=== PATIENT | male | born 1955 | race Caucasian/White ===

== ENCOUNTER 2019-04-11 07:00 | Emergency (ER) | payer OTHER ==
[2019-04-11 07:36] VITALS: TEMP 98.4; BMI 27.0
[2019-04-11] MEDS ORDERED: METOPROLOL TARTRATE 50 MG TABLET (FP) PO ONE (08:20)
--- NOTE | 2019-04-11 08:23 | PDOC ---
History of Present Illness - General Chief Complaint: Nasal Bleeding Stated Complaint: EPISTAXIS Time Seen by Provider: 04/11/19 07:44 History Source: Patient Exam Limitations: No Limitations - History of Present Illness Initial Comments: 04/11/19 08:02 64-year-old male presents to ED with complaints of spontaneous epistaxis via left nare at around 530 this morning. Patient states was picking at area trying to clean it when he noted bright red blood. Patient states tried putting a tissue in his nose and then noted clots of blood following it the bleeding continued for approximately 10 minutes but then resolved. Patient states had no difficulty breathing difficulty swallowing, and was able to spit out the blood. Patient does have history of COPD utilizing the and nebulizers and inhalers but denies any difficulty breathing presently. Patient also with history of hypertension and states did not take his blood pressure medication this morning. Patient denies headache presently dizziness, or chest pain 04/11/19 08:23 Is this a multiple visit Asthma Patient?: No Timing/Duration: other Severity: mild Associated Symptoms: reports: other Past History - Travel Traveled outside of the country in the last 30 days: No Close contact w/someone who was outside of country & ill: No - Past Medical History Allergies/Adverse Reactions: Allergies Allergy/AdvReac Type Severity Reaction Status Date / Time No Known Allergies Allergy Verified 04/11/19 07:33 Asthma: Yes COPD: Yes HTN: Yes - Immunization History Immunization Up to Date: No - Psycho Social/Smoking Cessation Hx Smoking History: Never smoked Have you smoked in the past 12 months: No Information on smoking cessation initiated: No Hx Alcohol Use: No Drug/Substance Use Hx: No Review of Systems - Review of Systems Able to Perform ROS?: Yes Constitutional: No: Symptoms Reported HEENTM: Yes: Nose Bleeding Respiratory: No: Symptoms reported Cardiac (ROS): No: Symptoms Reported ABD/GI: No: Symptoms Reported : No: Symptoms Reported Musculoskeletal: No: Symptoms Reported Integumentary: No: Symptoms Reported Neurological: No: Symptoms reported Endocrine: No: Symptoms Reported Hematologic/Lymphatic: No: Symptoms Reported *Physical Exam - Vital Signs Last Vital Signs Temp Pulse Resp BP Pulse Ox 98.4 F 63 16 180/93 H 90 L 04/11/19 07:27 04/11/19 07:27 04/11/19 07:27 04/11/19 07:27 04/11/19 07:27 - Physical Exam General Appearance: Yes: Nourished, Appropriately Dressed. No: Apparent Distress HEENT: positive: EOMI, HARSHIL, TMs Normal, Pharynx Normal, Other ( Noted excoriated area to the anterior base of left nare with scab to area surrounding skin intact no active bleeding ). negative: Nasal Congestion, Rhinorrhea, Sinus Tenderness Neck: positive: Supple Respiratory/Chest: positive: Wheezing (Mild expiratory wheeze to left lobe). negative: Respiratory Distress, Accessory Muscle Use Cardiovascular: positive: Regular Rhythm, Regular Rate. negative: Murmur Gastrointestinal/Abdominal: negative: Distended Integumentary: positive: Normal Color, Warm, Moist Neurologic: positive: Motor Strength 5/5 (Ambulatory with cane) Medical Decision Making - Medical Decision Making 04/11/19 08:11 Chief complaint: Left nasal bleeding while trying to clean it out this morning with a tissue which lasted for approximately 10 minutes patient has no other complaints. And is asymptomatic presently Exam: Patient with visualized excoriation/scab to the left nare floor mild expiratory wheeze to left base. Blood pressure slightly elevated. Plan: Patient states did not take his blood pressure medication today which is Lopressor and amlodipine. Patient will be given his 100 mg of Lopressor here in the ER O2 sat retaken and was at 92% on room air patient states is normally low and has no complaints of difficulty breathing Discharge - Discharge Information Problems reviewed: Yes Clinical Impression/Diagnosis: Epistaxis Condition: Improved Disposition: HOME - Follow up/Referral Referrals: Virgilio Childress MD [Primary Care Provider] - - Patient Discharge Instructions Patient Printed Discharge Instructions: DI for Nosebleed Additional Instructions: . . Avoid nose blowing and manipulation for the next 48 hours to avoid recurrent nasal bleeding do not take your Lopressor this morning as you are given the dose here in the ER. Otherwise take your other medications including your COPD medications/nebulizer inhaler. Return to ED if symptoms recur otherwise follow-up with your PMD - Post Discharge Activity
[2019-04-11] MEDS ORDERED: METOPROLOL TARTRATE 50 MG TABLET (FP) ONE (08:25)
[2019-04-11 09:17] VITALS: BP 175/87; PULSE 60
--- NOTE | 2019-04-11 10:12 | PDOC ---
*Physical Exam - Vital Signs Last Vital Signs Temp Pulse Resp BP Pulse Ox 98.4 F 60 17 175/87 H 90 L 04/11/19 07:27 04/11/19 09:16 04/11/19 09:16 04/11/19 09:16 04/11/19 07:27 ED Treatment Course - Medications Given in the ED: ED Medications Discontinued Medications Generic Name Dose Route Start Last Admin Trade Name Freq PRN Reason Stop Dose Admin Metoprolol Tartrate 100 mg 04/11/19 08:20 04/11/19 08:25 Lopressor - PO 04/11/19 08:21 100 mg ONCE ONE Administration Medical Decision Making - Medical Decision Making 04/11/19 10:11 Patient seen and evaluated with the nurse practitioner. I agree with the overall evaluation, assessment, and management with the following summary of visit: 64-year-old male with history of hypertension presents with epistaxis, resolved. Vitals as noted No active bleeding, nasal exam as noted Counseled on blood pressure control, hemostatic procedures, and return criteria. Discharge - Discharge Information Problems reviewed: Yes Clinical Impression/Diagnosis: Epistaxis Condition: Improved Disposition: HOME - Follow up/Referral Referrals: Virgilio Childress MD [Primary Care Provider] - - Patient Discharge Instructions Patient Printed Discharge Instructions: DI for Nosebleed Additional Instructions: . . Avoid nose blowing and manipulation for the next 48 hours to avoid recurrent nasal bleeding do not take your Lopressor this morning as you are given the dose here in the ER. Otherwise take your other medications including your COPD medications/nebulizer inhaler. Return to ED if symptoms recur otherwise follow-up with your PMD - Post Discharge Activity
== END 2019-04-11 09:27 | disposition home or self-care (01) ==
LOC: JER 07:00
DX: R04.0 Epistaxis (principal); I10 Essential (primary) hypertension; J44.9 Chronic obstructive pulmonary disease, unspecified; J45.998 Other asthma
CPT/HCPCS: 99282-25

== ENCOUNTER 2020-09-24 14:46 | Inpatient (IN) | payer OTHER ==
[2020-09-24 15:26] VITALS: BMI 25.9
[2020-09-24] MEDS ORDERED: DEXTROSE 50%-WATER - 25 GM/50 ML VIAL IVPUSH ONE ×4 (15:30→20:44)
[2020-09-24] MEDS ORDERED: SODIUM CHLORIDE 0.9% 500 ML INFUS.BAG IV ONE (15:31)
[2020-09-24] MEDS ORDERED: THIAMINE HCL 200 MG/2 ML VIAL IVPB ONE (15:33)
[2020-09-24] MEDS ORDERED: DEXTROSE 50%-WATER 25 GM/50 ML DISP.SYRIN ONE ×4 (15:38→21:01)
[2020-09-24] MEDS ORDERED: THIAMINE HCL 200 MG/2 ML VIAL ONE (15:38)
[2020-09-24 15:50] LABS: EPI CELLS 4 /uL (0-25.1); HYALINE CASTS 2 /uL (0-3.1); PH,URINE 5.5 (5.0-8.0); URINE APPEARANCE CLEAR; URINE BACTERIA >9,000 /uL (0-1359); URINE BILIRUBIN 1+ (NEGATIVE); URINE COLOR DK YELLOW; URINE GLUCOSE (UA) NEGATIVE (NEGATIVE); URINE KETONE NEGATIVE (NEGATIVE); URINE LEUK ESTERASE 2+ (NEGATIVE); URINE NITRITE NEGATIVE (NEGATIVE); URINE PROTEIN TRACE (NEGATIVE); URINE RBC 9 /uL (0-23.9); URINE WBC 266 /uL (0-25.8)
[2020-09-24 15:54] LABS: BASO % 0.9 % (0-2.0); EOS % 0.2 % (0-4.5); HEMATOCRIT 17.1 % (35.4-49); MCH 21.6 pg (25.7-33.7); MCHC 29.5 g/dl (32.0-35.9); MEAN CELL VOLUME 73.5 fl (80-96); MEAN PLT VOLUME 7.4 fl (7.5-11.1); MONO % 1.3 % (3.8-10.2); NEUT % 96.6 % (42.8-82.8); PLATELET COUNT 342 10^3/uL (134-434); RBC 2.33 M/mm3 (4.00-5.60); RDW 24.8 % (11.9-15.9)
[2020-09-24 15:57] LABS: VENOUS BASE EXCESS -0.5 mmol/L (-2-2); VENOUS O2 SATURATION 67.6 % (70-80); VENOUS PCO2 48.6 mmHg (38-52); VENOUS PH 7.333 (7.310-7.410)
[2020-09-24] MEDS ORDERED: ACETAMINOPHEN 1000 MG/100 ML VIAL (NON FORMULARY) IVPB ONE (15:57)
[2020-09-24 16:02] LABS: INR 1.84 (0.83-1.09); PROTHROMBIN TIME (PATIENT) 21.9 SEC (9.7-13.0)
[2020-09-24 16:04] LABS: ACTIVATED PTT 25.8 SECONDS (25.2-36.5)
[2020-09-24 16:18] LABS: CHLORIDE 98 mmol/L (98-107); SODIUM 132 mmol/L (136-145)
[2020-09-24 16:20] LABS: CALCIUM 8.2 mg/dL (8.5-10.1)
[2020-09-24 16:21] LABS: ALBUMIN 2.8 g/dl (3.4-5.0); ANION GAP 9 MMOL/L (8-16); BLOOD UREA NITROGEN 26.7 mg/dL (7-18); CO2 25 mmol/L (21-32)
[2020-09-24 16:24] LABS: CREATININE 1.3 mg/dL (0.55-1.3); SGOT/AST 426 U/L (15-37); SGPT/ALT 122 U/L (13-61)
[2020-09-24 16:26] LABS: TOT PROT 7.5 g/dl (6.4-8.2)
[2020-09-24] MEDS ORDERED: LACTATED RINGERS SOLUTION 1000 ML INFUS.BAG IV ONE (16:26)
[2020-09-24 16:27] LABS: ALK PHOS 803 U/L (45-117)
[2020-09-24] MEDS ORDERED: PANTOPRAZOLE SODIUM 40 MG VIAL IVPUSH ONE (16:29)
[2020-09-24] MEDS ORDERED: CEFTRIAXONE 1,000 MG in DEXTROSE 5%-WATER - 50 ML IVPB ONE (16:31)
[2020-09-24] MEDS ORDERED: VANCOMYCIN/WATER BAGS 1,250 MG/250 ML BAG IVPB ONE ×2 (16:35→17:02)
[2020-09-24] MEDS ORDERED: PIPERACILLIN/TAZOB 4.5 GM 4.5 GM in DEXTROSE 5%-WATER 100 ML IVPB ONE (16:36)
[2020-09-24] MEDS ORDERED: ACETAMINOPHEN INJECTION 100 ML IVPB ONE (16:40)
[2020-09-24] MEDS ORDERED: PANTOPRAZOLE SODIUM 40 MG VIAL ONE ×2 (16:41→22:21)
[2020-09-24] MEDS ORDERED: CEFTRIAXONE 1 GM/50 ML BAG ONE (16:41)
[2020-09-24 16:47] LABS: LACTIC ACID 3.2 mmol/L (0.4-2.0)
[2020-09-24 16:47] LABS: GLUCOSE,RANDOM 44 mg/dL (74-106)
[2020-09-24] MEDS ORDERED: PIPERACILLIN/TAZOB 4.5 GM 4.5 GM/100 ML BAG IVPB ONE (16:52)
[2020-09-24] MEDS ORDERED: VANCOMYCIN HCL 1,250 MG in DEXTROSE 5%-WATER - 1,250 MG/250 ML IVPB IVPB ONE (16:56)
[2020-09-24 17:28] LABS: ANISOCYTOSIS 3+; MACROCYTOSIS 1+
[2020-09-24] MEDS ORDERED: DEXTROSE 5%-WATER - 1,000 ML IV SCH (18:00)
[2020-09-24] MEDS ORDERED: MAGNESIUM SULFATE IN WATER 2 GM/50 ML IVPB IVPB ONE ×2 (18:35→19:54)
[2020-09-24] MEDS ORDERED: DEXTROSE 5%-NORMAL SALINE 1,000 ML IV SCH ×2 (18:45→20:09)
[2020-09-24 19:38] LABS: IRON SERUM 8 ug/dL (50-175)
[2020-09-24 19:39] LABS: TOTAL IRON BINDING CAPACITY 390 ug/dL (250-450)
[2020-09-24] MEDS: PANTOPRAZOLE SODIUM 40 MG VIAL IVPUSH SCH (22:11)
[2020-09-25] MEDS: PIPERACILLIN/TAZOB 3.375 GM 3.375 GM in DEXTROSE 5%-WATER - 50 ML IVPB SCH ×3 (03:00→19:23)
[2020-09-25 03:23] LABS: URINE AMPHETAMINES NEGATIVE (NEGATIVE)
[2020-09-25 03:24] LABS: COCAINE, UR NEGATIVE (NEGATIVE); OPIATES, URI NEGATIVE (NEGATIVE); PHENCYCLIDINE,URINE NEGATIVE (NEGATIVE); URINE BENZODIAZEPINES NEGATIVE (NEGATIVE)
[2020-09-25 03:25] LABS: METHADONE, UR POSITIVE (NEGATIVE); URINE BARBITURATES NEGATIVE (NEGATIVE)
[2020-09-25 04:25] LABS: HEMATOCRIT 23.4 % (35.4-49); MCH 23.1 pg (25.7-33.7); MCHC 29.7 g/dl (32.0-35.9); MEAN CELL VOLUME 77.7 fl (80-96); MEAN PLT VOLUME 7.7 fl (7.5-11.1); PLATELET COUNT 269 10^3/uL (134-434); RBC 3.02 M/mm3 (4.00-5.60); RDW 22.8 % (11.9-15.9)
[2020-09-25 04:31] LABS: WHITE BLOOD COUNT 31.7 K/mm3 (4.0-10.0)
[2020-09-25] MEDS ORDERED: PIPERACILLIN/TAZOB 3.375 GM 3.375 GM/50 ML BAG IVPB ONE ×2 (04:41→09:28)
[2020-09-25] MEDS ORDERED: DEXTROSE 5%-NORMAL SALINE 1,000 ML IV SCH ×3 (04:48→21:56)
[2020-09-25 05:13] LABS: LIPASE 66 U/L (73-393)
[2020-09-25 05:57] LABS: CHOLESTEROL 77 mg/dL (50-200)
[2020-09-25 05:58] LABS: TRIGLYCERIDES 29 mg/dL (0-150)
[2020-09-25 05:59] LABS: LDL CHOLESTEROL (ONLY SJRH) 38 mg/dL (5-100)
[2020-09-25 06:00] LABS: HDL CHOLESTEROL 41 mg/dL (40-60)
[2020-09-25] MEDS ORDERED: ALBUTEROL SO4 2.5/IPRATROPIUM 0.5 INH SOL 3 ML VIAL.NEB. NEB PRN (09:00)
[2020-09-25 09:12] LABS: ARTERIAL BLD GAS O2 SATURATION 87.5 mmHg (95-98); ARTERIAL BLOOD GAS PO2 61.8 mmHg (80-100); ARTERIAL BLOOD GAS pH 7.241 (7.350-7.450)
[2020-09-25 09:13] LABS: ALLENS TEST POSITIVE
[2020-09-25 09:15] LABS: LDH 384 U/L (87-246)
[2020-09-25] MEDS ORDERED: VANCOMYCIN 1 GRAM (PRE-DOCKED) 1,000 MG/250 ML BAG IVPB ONE (09:27)
[2020-09-25] MEDS ORDERED: PANTOPRAZOLE SODIUM 40 MG VIAL ONE (09:28)
[2020-09-25] MEDS: PANTOPRAZOLE SODIUM 40 MG VIAL IVPUSH SCH ×2 (09:35→21:03)
[2020-09-25] MEDS ORDERED: VANCOMYCIN 1 GM in D5W (PRE-DOCKED) 1,000 MG/250 ML IVPB SCH (10:00)
[2020-09-25] MEDS ORDERED: ACETAMINOPHEN 325 MG TABLET (FP) PO PRN (10:08)
[2020-09-25] MEDS: INSULIN SLIDING SCALE (NOVOLOG) 1 VIAL SQ SCH ×3 (11:00→21:16)
[2020-09-25 11:46] LABS: CHOLESTEROL < 50 mg/dL (50-200)
[2020-09-25 11:47] LABS: IRON SERUM 7 ug/dL (50-175); TOTAL IRON BINDING CAPACITY 348 ug/dL (250-450); TRIGLYCERIDES 31 mg/dL (0-150)
[2020-09-25 11:48] LABS: LDL CHOLESTEROL (ONLY SJRH) 14 mg/dL (5-100)
[2020-09-25 11:50] LABS: HDL CHOLESTEROL 34 mg/dL (40-60)
[2020-09-25] MEDS ORDERED: ACETAMINOPHEN 1000 MG/100 ML VIAL (NON FORMULARY) IVPB PRN (12:07)
[2020-09-25] MEDS ORDERED: PHYTONADIONE 10 MG/1 ML AMP IVPB ONE ×2 (12:13→16:45)
[2020-09-25] MEDS ORDERED: PNEUMOC 13-VAL CONJ-DIP CRM/PF 0.5 ML DISP.SYRIN IM ONE (12:18)
[2020-09-25] MEDS ORDERED: THIAMINE HCL 200 MG/2 ML VIAL IVPB SCH (12:30)
[2020-09-25] MEDS ORDERED: FOLIC ACID INJECTION - 1 MG, THIAMINE HCL 100 MG, MULTIVIT INJECTION ADULT 10 ML in SOD... IVPB ONE (13:00)
[2020-09-25] MEDS ORDERED: LORazepam 1 MG TABLET PO PRN (14:11)
[2020-09-25] MEDS ORDERED: ALBUTEROL SO4 0.083% IH SOL 2.5 MG/3 ML VIAL.NEB. NEB PRN (14:28)
[2020-09-25 14:31] LABS: INR 2.17 (0.83-1.09); PROTHROMBIN TIME (PATIENT) 26.1 SEC (9.7-13.0)
[2020-09-25 14:33] LABS: BASO % 1.5 % (0-2.0); EOS % 0.1 % (0-4.5); HEMATOCRIT 26.4 % (35.4-49); LYMPH % 1.1 % (8-40); MCH 24.1 pg (25.7-33.7); MCHC 30.5 g/dl (32.0-35.9); MEAN PLT VOLUME 7.8 fl (7.5-11.1); MONO % 0.7 % (3.8-10.2); NEUT % 96.6 % (42.8-82.8); PLATELET COUNT 238 10^3/uL (134-434); RBC 3.34 M/mm3 (4.00-5.60); RDW 21.5 % (11.9-15.9)
[2020-09-25] MEDS ORDERED: FUROSEMIDE 40 MG/4 ML INJECTABLE VIAL IVPUSH ONE (14:34)
[2020-09-25] MEDS ORDERED: METHADONE HCL 10 MG TABLET PO ONE (14:37)
[2020-09-25] MEDS ORDERED: PNEUMOCOCCAL 23 VACCINE 0.5 ML VIAL IM ONE (14:45)
[2020-09-25 15:04] LABS: CALCIUM 7.7 mg/dL (8.5-10.1)
[2020-09-25 15:05] LABS: ALBUMIN 2.4 g/dl (3.4-5.0); MAGNESIUM 1.9 mg/dL (1.8-2.4)
[2020-09-25 15:08] LABS: CREATININE 1.4 mg/dL (0.55-1.3)
[2020-09-25 15:09] LABS: PHOSPHOROUS 3.8 mg/dL (2.5-4.9)
[2020-09-25 15:13] LABS: ANISOCYTOSIS 2+; LACTIC ACID 3.6 mmol/L (0.4-2.0); MACROCYTOSIS 0; PLATELET ESTIMATE NORMAL
[2020-09-25 15:14] LABS: BILIRUBIN,TOTAL 6.5 mg/dL (0.2-1); CORRECTED WBC 8.29 K/mm3; WHITE BLOOD COUNT 9.2 K/mm3 (4.0-10.0)
[2020-09-25 15:54] LABS: HIV INTERPRETATION NEGATIVE (NEGATIVE)
[2020-09-25] MEDS ORDERED: PT OWN MED DRAWER 7, Y5N ONE (16:29)
[2020-09-25] MEDS ORDERED: LORazepam 1 MG TABLET PO SCH (17:00)
[2020-09-25] MEDS ORDERED: DEXTROSE 50%-WATER 25 GM/50 ML DISP.SYRIN ONE ×2 (17:26→21:13)
[2020-09-25] MEDS ORDERED: DEXTROSE 50%-WATER - 25 GM/50 ML VIAL IVPUSH ONE ×2 (17:28→21:26)
[2020-09-25] MEDS ORDERED: PIPERACILLIN/TAZOB 3.375 GM 3.375 GM in DEXTROSE 5%-WATER - 50 ML IVPB SCH (18:00)
[2020-09-25] MEDS ORDERED: DEXTROSE 5%-WATER - 50 ML IVPB ONE (18:13)
[2020-09-25] MEDS ORDERED: PIPERACILLIN/TAZOBACTAM 3.375 GM VIAL IVPB ONE (18:13)
[2020-09-25] MEDS: MUPIROCIN 2% TOPICAL OINTMENT FOR DECOLONIZATION NS SCH ×2 (19:26→21:15)
[2020-09-25 19:38] LABS: LACTIC ACID 2.2 mmol/L (0.4-2.0)
[2020-09-25 21:18] VITALS: BP 98/61; PULSE 93; TEMP 97.8
[2020-09-25] MEDS ORDERED: CHLORHEXIDINE GLUCONATE 4% CLEANSER FOR DECOLONIZATION TP SCH (22:00)
[2020-09-26] MEDS ORDERED: PATIENT'S OWN MEDICATION (NON-FORMULARY) (Losartan Potassium [Losartan Potassium] 100 MG T PO SCH (10:00)
[2020-09-26 13:07] LABS: CARCINOEMBRYONIC ANTIGEN 3.1 ng/mL (0.0-4.7)
[2020-09-27] MEDS ORDERED: LORazepam 1 MG TABLET PO SCH (05:00)
[2020-09-28] MEDS ORDERED: LORazepam 0.5 MG TABLET PO PRN
[2020-09-28] MEDS ORDERED: LORazepam 0.5 MG TABLET PO SCH (05:00)
[2020-09-29] MEDS ORDERED: LORazepam 0.5 MG TABLET PO ONE (05:00)
== END 2020-09-25 21:30 | disposition short-term general hospital (02) | DRG 720 ==
LOC: JER 14:46 → JERBED 17:44 → JICU 09-25 11:42
PROVIDERS: ATTEND Internal Medicine Pulmonary Disease
PROC: 30233N1 Transfusion of Nonautologous Red Blood Cells into Peripheral Vein, Percutaneous Approach (ICD-10-PCS; principal; 2020-09-24)
DX: A41.59 Other Gram-negative sepsis (principal); F11.20 Opioid dependence, uncomplicated; K72.90 Hepatic failure, unspecified without coma; K85.90 Acute pancreatitis without necrosis or infection, unspecified; I24.8 Other forms of acute ischemic heart disease; D68.9 Coagulation defect, unspecified; E87.2 Acidosis; K83.09 Other cholangitis; D64.9 Anemia, unspecified; N39.0 Urinary tract infection, site not specified; B96.1 Klebsiella pneumoniae [K. pneumoniae] as the cause of diseases classified elsewhere; K83.8 Other specified diseases of biliary tract; K74.60 Unspecified cirrhosis of liver; R18.8 Other ascites; I10 Essential (primary) hypertension; K92.2 Gastrointestinal hemorrhage, unspecified; E16.2 Hypoglycemia, unspecified; R50.9 Fever, unspecified; D72.829 Elevated white blood cell count, unspecified; I45.10 Unspecified right bundle-branch block; R64 Cachexia; Z68.25 Body mass index [BMI] 25.0-25.9, adult; J98.11 Atelectasis; R94.5 Abnormal results of liver function studies; I25.10 Atherosclerotic heart disease of native coronary artery without angina pectoris; F10.10 Alcohol abuse, uncomplicated; W18.39XA Other fall on same level, initial encounter; Z91.81 History of falling; Y92.098 Other place in other non-institutional residence as the place of occurrence of the external cause
CPT/HCPCS: 36415; 36430; 36600; 70450-TC; 71045-TC-FY; 71250-TC; 72125-TC; 74174-TC; 74176-TC; 76705-TC; 80053; 80061; 80074; 80307; 81003; 82140; 82248; 82272; 82378; 82550; 82553; 82607; 82728; 82746; 82803; 82962; 83010; 83036; 83540; 83550; 83605; 83615; 83690; 83721; 83735; 83880; 84100; 84443; 84484; 85025; 85027; 85045; 85610; 85730; 86301; 86480; 86850; 86900; 86901; 86922; 87040; 87086; 87186; 87389; 93005; 93010; 99285-25; C9803; J0131; P9058; Q9967; U0003; U0005

== ENCOUNTER 2021-03-15 22:37 | Emergency (ER) | payer OTHER ==
[2021-03-15] MEDS ORDERED: RAPID SEQUENCE INTUBATION KIT NR ONE (22:54)
[2021-03-15 22:57] LABS: HEMATOCRIT 41.7 % (35.4-49); HEMOGLOBIN 13.7 GM/dL (11.7-16.9); MCH 31.2 pg (25.7-33.7); MCHC 32.9 g/dl (32.0-35.9); MEAN CELL VOLUME 94.9 fl (80-96); MEAN PLT VOLUME 8.8 fl (7.5-11.1); PLATELET COUNT 209 10^3/uL (134-434); RBC 4.39 M/mm3 (4.00-5.60); RDW 14.7 % (11.9-15.9); WHITE BLOOD COUNT 12.6 K/mm3 (4.0-10.0)
[2021-03-15 23:04] LABS: INR 1.2 (0.83-1.09); PROTHROMBIN TIME (PATIENT) 13.5 SEC (9.7-13.0)
[2021-03-15 23:07] LABS: ACTIVATED PTT 30.6 SECONDS (25.2-36.5)
[2021-03-15] MEDS ORDERED: LORazepam 2 MG/ML SDV VIAL ONE (23:13)
[2021-03-15] MEDS ORDERED: PROPOFOL 1,000,000 MCG/100 ML VIAL IVPB SCH ×2 (23:15→23:45)
[2021-03-15 23:18] LABS: CHLORIDE 98 mmol/L (98-107); SODIUM 137 mmol/L (136-145)
[2021-03-15 23:20] LABS: ALBUMIN 3.4 g/dl (3.4-5.0); ANION GAP 18 MMOL/L (8-16); CALCIUM 9.6 mg/dL (8.5-10.1); CO2 21 mmol/L (21-32); GLUCOSE,RANDOM 155 mg/dL (74-106); MAGNESIUM 1.9 mg/dL (1.8-2.4)
[2021-03-15 23:21] LABS: BLOOD UREA NITROGEN 15.6 mg/dL (7-18)
[2021-03-15 23:23] LABS: SGOT/AST 100 U/L (15-37); SGPT/ALT 121 U/L (13-61)
[2021-03-15 23:24] VITALS: TEMP 99.2; BMI 24.3
[2021-03-15 23:24] LABS: CREATININE 0.9 mg/dL (0.55-1.3)
[2021-03-15 23:25] LABS: TOT PROT 8.6 g/dl (6.4-8.2)
[2021-03-15 23:26] LABS: ALK PHOS 274 U/L (45-117)
[2021-03-15 23:27] LABS: LACTIC ACID 10.9 mmol/L (0.4-2.0)
[2021-03-15] MEDS ORDERED: MIDAZOLAM IN 0.9 % SOD.CHLORID 1 MG/1 ML PLAST..BAG ONE (23:28)
[2021-03-15] MEDS ORDERED: MIDAZOLAM IN 0.9 % SOD.CHLORID 100 MG/100 ML PLAST..BAG IVPB SCH (23:30)
[2021-03-15 23:32] LABS: ARTERIAL BLD GAS O2 SATURATION 97.9 % (95-98); ARTERIAL BLOOD GAS BASE EXCESS 4.5 mmol/L (-2-2); ARTERIAL BLOOD GAS pH 7.437 (7.350-7.450)
[2021-03-15 23:33] LABS: ALLENS TEST POSITIVE; VENT MODE A/C; VENT RATE 16
[2021-03-15] MEDS ORDERED: LORazepam 2 MG/ML SDV VIAL IVPUSH ONE (23:33)
[2021-03-15] MEDS ORDERED: MIDAZOLAM HCL 2 MG/2 ML SINGLE DOSE VIAL ONE (23:36)
[2021-03-15] MEDS ORDERED: MIDAZOLAM HCL 2 MG/2 ML SINGLE DOSE VIAL IVPUSH ONE (23:36)
[2021-03-15] MEDS ORDERED: FENTANYL NS IVPB 500 MCG/100 ML BAG IVPB SCH (23:45)
[2021-03-16] MEDS ORDERED: PROPOFOL 1,000,000 MCG/100 ML VIAL ONE (00:39)
[2021-03-16 00:43] LABS: EPI CELLS 12 /uL (0-25.1); HYALINE CASTS 1 /uL (0-3.1); PH,URINE 7.5 (5.0-8.0); URINE APPEARANCE CLEAR; URINE BACTERIA 45 /uL (0-1359); URINE BILIRUBIN NEGATIVE (NEGATIVE); URINE COLOR YELLOW; URINE GLUCOSE (UA) NEGATIVE (NEGATIVE); URINE KETONE NEGATIVE (NEGATIVE); URINE LEUK ESTERASE NEGATIVE (NEGATIVE); URINE NITRITE NEGATIVE (NEGATIVE); URINE PROTEIN 3+ (NEGATIVE); URINE RBC 13 /uL (0-23.9); URINE UROBILINOGEN 0.2 mg/dL (0.2-1.0); URINE WBC 4 /uL (0-25.8)
[2021-03-16] MEDS ORDERED: FENTANYL NS IVPB 500 MCG/100 ML BAG IVPB ONE (00:47)
[2021-03-16] MEDS ORDERED: levETIRAcetam 500 MG/5 ML INJECTION VIAL IVPB ONE (01:00)
[2021-03-16] MEDS ORDERED: LORazepam 2 MG/ML SDV VIAL IVPUSH ONE (01:28)
[2021-03-16] MEDS ORDERED: ROCURONIUM BROMIDE 50 MG/5 ML VIAL IVPUSH ONE (01:58)
[2021-03-16] MEDS ORDERED: WATER IVPB ONE (02:30)
[2021-03-16] MEDS ORDERED: DEXTROSE 5% IVPB ONE (02:30)
[2021-03-16] MEDS ORDERED: LEVETIRACETAM IVPB ONE (02:30)
[2021-03-16 03:56] VITALS: BP 232/125; PULSE 93
== END 2021-03-16 03:56 | disposition short-term general hospital (02) ==
LOC: JER 22:37
PROC: 3E033GC Introduction of Other Therapeutic Substance into Peripheral Vein, Percutaneous Approach (ICD-10-PCS; principal; 2021-03-15)
DX: I63.9 Cerebral infarction, unspecified (principal); G40.901 Epilepsy, unspecified, not intractable, with status epilepticus
CPT/HCPCS: 36415; 36600; 70450-TC; 71045-TC-FY; 80053; 81003; 82140; 82550; 82803; 82962; 83605; 83735; 84484; 85027; 85610; 85730; 86850; 86900; 86901; 87040; 87086; 93005; 93010; 99291; 99292; C9803; G0480; U0003; U0005

== ENCOUNTER 2022-05-24 13:18 | Observation (INO) | payer BC, OTHER ==
[2022-05-24 14:45] LABS: BASO % 0.7 % (0-2.0); EOS % 3.3 % (0-4.5); HEMATOCRIT 36.5 % (35.4-49); HEMOGLOBIN 11.6 GM/dL (11.7-16.9); LYMPH % 15.7 % (8-40); MCH 28.5 pg (25.7-33.7); MCHC 31.8 g/dl (32.0-35.9); MEAN CELL VOLUME 89.9 fl (80-96); MEAN PLT VOLUME 8.2 fl (7.5-11.1); MONO % 16.1 % (3.8-10.2); NEUT % 64.2 % (42.8-82.8); PLATELET COUNT 229 10^3/uL (134-434); RBC 4.06 M/mm3 (4.00-5.60); RDW 14.1 % (11.9-15.9); WHITE BLOOD COUNT 11.4 K/mm3 (4.0-10.0)
[2022-05-24 14:54] LABS: INR 1.17 (0.83-1.09); PROTHROMBIN TIME (PATIENT) 13.6 SEC (9.7-13.0)
[2022-05-24 14:56] LABS: ACTIVATED PTT 37.5 SECONDS (25.2-36.5)
[2022-05-24 15:07] LABS: ALBUMIN 3.1 g/dl (3.4-5.0); BLOOD UREA NITROGEN 12.1 mg/dL (7-18)
[2022-05-24 15:12] LABS: BILIRUBIN,TOTAL 0.5 mg/dL (0.2-1); TOT PROT 7.3 g/dl (6.4-8.2)
[2022-05-24 15:15] LABS: N-TERMINAL BNP 546.2 pg/ml (5-125)
[2022-05-24] MEDS ORDERED: FUROSEMIDE 40 MG/4 ML INJECTABLE VIAL IVPUSH ONE (16:01)
[2022-05-24] MEDS ORDERED: VANCOMYCIN 1 GM in D5W (PRE-DOCKED) 1,000 MG/250 ML IVPB ONE (16:03)
[2022-05-24] MEDS ORDERED: PIPERACILLIN/TAZOB 4.5 GM 4.5 GM in DEXTROSE 5%-WATER 100 ML IVPB ONE (16:04)
[2022-05-24] MEDS ORDERED: PIPERACILLIN/TAZOB 3.375 GM 3.375 GM in DEXTROSE 5%-WATER - 50 ML IVPB ONE (16:06)
[2022-05-24] MEDS ORDERED: PIPERACILLIN/TAZOB 3.375 GM 3.375 GM/50 ML BAG IVPB ONE (16:21)
[2022-05-24 16:29] LABS: URINE APPEARANCE CLEAR; URINE BILIRUBIN NEGATIVE (NEGATIVE); URINE COLOR YELLOW; URINE GLUCOSE (UA) NEGATIVE (NEGATIVE); URINE KETONE NEGATIVE (NEGATIVE); URINE LEUK ESTERASE NEGATIVE (NEGATIVE); URINE NITRITE NEGATIVE (NEGATIVE); URINE PROTEIN NEGATIVE (NEGATIVE); URINE UROBILINOGEN 0.2 mg/dL (0.2-1.0)
[2022-05-24] MEDS ORDERED: VANCOMYCIN/WATER FOR INJ (PEG) 1,000 MG/200 ML BAG IVPB ONE (17:04)
[2022-05-24] MEDS ORDERED: CEFAZOLIN 1 GM in DEXTROSE 5%-WATER - 50 ML IVPB SCH (18:00)
[2022-05-24] MEDS ORDERED: ceFAZolin SODIUM 1 GM VIAL ONE ×2 (18:01→23:32)
[2022-05-25 00:34] VITALS: BMI 29.9
[2022-05-25] MEDS: CEFAZOLIN 1 GM in DEXTROSE 5%-WATER - 50 ML IVPB SCH ×3 (01:36→18:08)
[2022-05-25 08:57] LABS: BASO % 0.6 % (0-2.0); EOS % 4.3 % (0-4.5); HEMATOCRIT 34.3 % (35.4-49); HEMOGLOBIN 11.2 GM/dL (11.7-16.9); LYMPH % 16.5 % (8-40); MCH 29.1 pg (25.7-33.7); MCHC 32.7 g/dl (32.0-35.9); MEAN CELL VOLUME 88.9 fl (80-96); NEUT % 62.6 % (42.8-82.8); PLATELET COUNT 217 10^3/uL (134-434); RBC 3.85 M/mm3 (4.00-5.60); RDW 13.9 % (11.9-15.9); WHITE BLOOD COUNT 10.2 K/mm3 (4.0-10.0)
[2022-05-25 09:42] LABS: CALCIUM 8.6 mg/dL (8.5-10.1)
[2022-05-25 09:44] LABS: BLOOD UREA NITROGEN 12.8 mg/dL (7-18)
[2022-05-25 09:47] LABS: CREATININE 0.9 mg/dL (0.55-1.3)
[2022-05-25] MEDS: FUROSEMIDE 40 MG TABLET (FP) PO SCH (10:15)
[2022-05-25] MEDS: levETIRAcetam 250 MG TABLET PO SCH ×2 (10:15→22:47)
[2022-05-25] MEDS ORDERED: ACETAMINOPHEN 325 MG TABLET (FP) PO PRN (12:40)
[2022-05-26] MEDS: CEFAZOLIN 1 GM in DEXTROSE 5%-WATER - 50 ML IVPB SCH ×3 (02:53→18:03)
[2022-05-26] MEDS: methaDONE HCL 40 MG DISPERSABLE TABLET PO SCH (07:41)
[2022-05-26] MEDS: FUROSEMIDE 40 MG TABLET (FP) PO SCH (10:32)
[2022-05-26] MEDS: levETIRAcetam 250 MG TABLET PO SCH ×2 (10:32→22:24)
[2022-05-26] MEDS: ENOXAPARIN NA (PORCINE) 40 MG/0.4 ML DISP.SYRIN SQ SCH (10:32)
[2022-05-26 11:53] LABS: BASO % 0.5 % (0-2.0); EOS % 4.6 % (0-4.5); HEMATOCRIT 37.8 % (35.4-49); HEMOGLOBIN 12.3 GM/dL (11.7-16.9); LYMPH % 14.9 % (8-40); MCH 29.3 pg (25.7-33.7); MCHC 32.6 g/dl (32.0-35.9); MEAN CELL VOLUME 89.8 fl (80-96); MEAN PLT VOLUME 9.1 fl (7.5-11.1); MONO % 13.5 % (3.8-10.2); NEUT % 66.5 % (42.8-82.8); PLATELET COUNT 246 10^3/uL (134-434); RBC 4.22 M/mm3 (4.00-5.60); RDW 13.8 % (11.9-15.9); WHITE BLOOD COUNT 10.9 K/mm3 (4.0-10.0)
[2022-05-26 12:13] LABS: ALBUMIN 2.9 g/dl (3.4-5.0); CALCIUM 8.7 mg/dL (8.5-10.1); MAGNESIUM 1.9 mg/dL (1.8-2.4)
[2022-05-26 12:17] LABS: CREATININE 0.9 mg/dL (0.55-1.3)
[2022-05-26 12:18] LABS: BILIRUBIN,TOTAL 0.4 mg/dL (0.2-1)
[2022-05-26] MEDS ORDERED: HYDROCORTISONE 0.5% TOPICAL CREAM 30 GM TUBE TP PRN (13:00)
[2022-05-26 23:43] VITALS: RESP 18
[2022-05-27] MEDS: CEFAZOLIN 1 GM in DEXTROSE 5%-WATER - 50 ML IVPB SCH ×2 (03:06→09:54)
[2022-05-27] MEDS: methaDONE HCL 40 MG DISPERSABLE TABLET PO SCH (06:03)
[2022-05-27] MEDS: amLODIPine BESYLATE 10 MG TABLET (FP) PO SCH (09:54)
[2022-05-27] MEDS: FUROSEMIDE 40 MG TABLET (FP) PO SCH (09:54)
[2022-05-27] MEDS: levETIRAcetam 250 MG TABLET PO SCH ×2 (09:54→22:00)
[2022-05-27] MEDS: ENOXAPARIN NA (PORCINE) 40 MG/0.4 ML DISP.SYRIN SQ SCH (09:54)
[2022-05-27 11:56] LABS: BASO % 0.6 % (0-2.0); EOS % 4.3 % (0-4.5); HEMATOCRIT 37.6 % (35.4-49); HEMOGLOBIN 11.9 GM/dL (11.7-16.9); LYMPH % 12.7 % (8-40); MCH 28.6 pg (25.7-33.7); MCHC 31.7 g/dl (32.0-35.9); MEAN PLT VOLUME 9.1 fl (7.5-11.1); MONO % 12.5 % (3.8-10.2); NEUT % 69.9 % (42.8-82.8); PLATELET COUNT 245 10^3/uL (134-434); RBC 4.18 M/mm3 (4.00-5.60); WHITE BLOOD COUNT 13.1 K/mm3 (4.0-10.0)
[2022-05-27 12:56] LABS: ALBUMIN 3.1 g/dl (3.4-5.0); CALCIUM 8.6 mg/dL (8.5-10.1)
[2022-05-27 12:57] LABS: BLOOD UREA NITROGEN 15.3 mg/dL (7-18); MAGNESIUM 1.9 mg/dL (1.8-2.4)
[2022-05-27 13:00] LABS: CREATININE 0.9 mg/dL (0.55-1.3)
[2022-05-27 13:02] LABS: BILIRUBIN,TOTAL 0.3 mg/dL (0.2-1); TOT PROT 7.4 g/dl (6.4-8.2)
[2022-05-27] MEDS: AMOX TR/POT CLAV 875MG/125MG TABLETS (FP) PO SCH (20:10)
[2022-05-28] MEDS: methaDONE HCL 40 MG DISPERSABLE TABLET PO SCH (06:35)
[2022-05-28] MEDS: AMOX TR/POT CLAV 875MG/125MG TABLETS (FP) PO SCH (09:32)
[2022-05-28] MEDS: amLODIPine BESYLATE 10 MG TABLET (FP) PO SCH (09:32)
[2022-05-28] MEDS: levETIRAcetam 250 MG TABLET PO SCH (09:33)
[2022-05-28] MEDS: ENOXAPARIN NA (PORCINE) 40 MG/0.4 ML DISP.SYRIN SQ SCH (09:33)
[2022-05-28] MEDS: FUROSEMIDE 40 MG TABLET (FP) PO SCH (09:33)
[2022-05-28 09:39] VITALS: BP 118/67; PULSE 70; TEMP 97.9
== END 2022-05-28 12:00 | disposition home or self-care (01) ==
LOC: JER 13:18 → JERBED 17:05 → J8W 21:43
PROVIDERS: ADMIT Internal Medicine; ATTEND Nurse Practitioner Acute Care
PROC: 3E03329 Introduction of Other Anti-infective into Peripheral Vein, Percutaneous Approach (ICD-10-PCS; principal; 2022-05-24)
PROC: 3E023GC Introduction of Other Therapeutic Substance into Muscle, Percutaneous Approach (ICD-10-PCS; 2022-05-24)
PROC: 3E033GC Introduction of Other Therapeutic Substance into Peripheral Vein, Percutaneous Approach (ICD-10-PCS; 2022-05-24)
DX: I50.43 Acute on chronic combined systolic (congestive) and diastolic (congestive) heart failure (principal); I11.0 Hypertensive heart disease with heart failure; J96.00 Acute respiratory failure, unspecified whether with hypoxia or hypercapnia; L03.115 Cellulitis of right lower limb; L03.116 Cellulitis of left lower limb; F11.20 Opioid dependence, uncomplicated; R56.9 Unspecified convulsions; Z29.8 Encounter for other specified prophylactic measures; I25.10 Atherosclerotic heart disease of native coronary artery without angina pectoris; I11.9 Hypertensive heart disease without heart failure; Z87.891 Personal history of nicotine dependence; L53.8 Other specified erythematous conditions; Z99.81 Dependence on supplemental oxygen
CPT/HCPCS: 0241U-QW; 36415; 71046-TC-FY; 80048; 80053; 81003; 83036; 83735; 83880; 84484; 85025; 85610; 85730; 87040; 87086; 93005; 93010; 93306-TC; 93970-TC; 94660; 94761; 96365; 96366; 96367; 96372; 96375; 99285-25; G0378

== ENCOUNTER 2023-08-29 22:15 | Inpatient (IN) | payer OTHER ==
[2023-08-30] MEDS ORDERED: AMPICILLIN NA/SULBACTAM NA 1.5 GM VIAL ONE (01:01)
[2023-08-30 01:11] LABS: BASO % 0.4 % (0-2.0); EOS % 5.1 % (0-4.5); HEMATOCRIT 29.4 % (35.4-49); HEMOGLOBIN 9.8 GM/dL (11.7-16.9); LYMPH % 15.4 % (8-40); MCH 31.5 pg (25.7-33.7); MCHC 33.4 g/dl (32.0-35.9); MEAN CELL VOLUME 94.4 fl (80-96); MEAN PLT VOLUME 7.6 fl (7.5-11.1); NEUT % 60.1 % (42.8-82.8); PLATELET COUNT 409 10^3/uL (134-434); RBC 3.11 M/mm3 (4.00-5.60); WHITE BLOOD COUNT 7.9 K/mm3 (4.0-10.0)
[2023-08-30] MEDS: AMPICILLIN NA/SULBACTAM NA 1.5 GM in SODIUM CHLORIDE 100 ML IVPB ONE (01:14)
[2023-08-30 01:19] LABS: INR 1.06 (0.83-1.09)
[2023-08-30 01:22] LABS: ACTIVATED PTT 36.3 SECONDS (25.2-36.5)
[2023-08-30 01:54] LABS: ERYTHROCYTE SEDIMENTATION RATE 101 mm/hr (0-20)
[2023-08-30 02:34] LABS: BLOOD UREA NITROGEN 14.9 mg/dL (7-18); CALCIUM 9.1 mg/dL (8.5-10.1)
[2023-08-30 02:35] LABS: ALBUMIN 2.7 g/dl (3.4-5.0)
[2023-08-30 02:39] LABS: BILIRUBIN,TOTAL 0.7 mg/dL (0.2-1); TOT PROT 6.5 g/dl (6.4-8.2)
[2023-08-30 03:17] LABS: MAGNESIUM 1.9 mg/dL (1.8-2.4)
[2023-08-30] MEDS ORDERED: ACETAMINOPHEN 325 MG TABLET (FP) PO PRN (06:53)
[2023-08-30] MEDS ORDERED: traMADol HCL 50 MG TABLET PO PRN (06:53)
[2023-08-30 07:41] LABS: URINE APPEARANCE CLEAR; URINE BILIRUBIN NEGATIVE (NEGATIVE); URINE COLOR YELLOW; URINE GLUCOSE (UA) NEGATIVE (NEGATIVE); URINE KETONE NEGATIVE (NEGATIVE); URINE LEUK ESTERASE NEGATIVE (NEGATIVE); URINE NITRITE NEGATIVE (NEGATIVE); URINE PROTEIN NEGATIVE (NEGATIVE)
[2023-08-30] MEDS: levETIRAcetam 250 MG TABLET PO SCH (11:30)
[2023-08-30] MEDS: FUROSEMIDE 40 MG TABLET (FP) PO SCH (11:30)
[2023-08-30] MEDS: amLODIPine BESYLATE 10 MG TABLET (FP) PO SCH (11:30)
[2023-08-30] MEDS: APIXABAN 5 MG TABLET PO SCH (11:30)
[2023-08-30] MEDS: FOLIC ACID 1 MG TABLET (FP) PO SCH (11:30)
[2023-08-30] MEDS: PANTOPRAZOLE 40 MG TABLET PO SCH (11:30)
[2023-08-30] MEDS: CEFTRIAXONE 1 GM in DEXTROSE 5%-WATER - 50 ML IVPB SCH (11:30)
[2023-08-30] MEDS ORDERED: PANTOPRAZOLE 40 MG TABLET PO ONE (11:42)
[2023-08-30] MEDS ORDERED: CEFTRIAXONE 1 GM/50 ML BAG ONE (11:43)
[2023-08-30 19:50] VITALS: BMI 26.8
[2023-08-31 07:37] LABS: HEMATOCRIT 29.8 % (35.4-49); HEMOGLOBIN 9.9 GM/dL (11.7-16.9); MCH 31.5 pg (25.7-33.7); MCHC 33.3 g/dl (32.0-35.9); MEAN CELL VOLUME 94.5 fl (80-96); MEAN PLT VOLUME 7.8 fl (7.5-11.1); PLATELET COUNT 435 10^3/uL (134-434); RBC 3.15 M/mm3 (4.00-5.60); RDW 14.5 % (11.9-15.9); WHITE BLOOD COUNT 6.5 K/mm3 (4.0-10.0)
[2023-08-31 07:47] LABS: POTASSIUM 4.2 mmol/L (3.5-5.1)
[2023-08-31 07:50] LABS: BLOOD UREA NITROGEN 10.4 mg/dL (7-18); CALCIUM 8.7 mg/dL (8.5-10.1)
[2023-08-31 07:51] LABS: MAGNESIUM 1.9 mg/dL (1.8-2.4)
[2023-08-31 07:54] LABS: CREATININE 0.7 mg/dL (0.55-1.3); PHOSPHOROUS 4.1 mg/dL (2.5-4.9)
[2023-09-01 15:13] VITALS: BP 128/73; PULSE 81; RESP 18; TEMP 98
== END 2023-09-01 16:38 | DRG 603 ==
LOC: JER 22:15 → JERBED 08-30 06:46 → J8W 08-30 15:46
PROVIDERS: ADMIT Internal Medicine; ATTEND Family Medicine
PROC: 2W3FX1Z Immobilization of Left Hand using Splint (ICD-10-PCS; principal; 2023-08-29)
DX: L03.115 Cellulitis of right lower limb (principal); S52.592A Other fractures of lower end of left radius, initial encounter for closed fracture; I50.30 Unspecified diastolic (congestive) heart failure; J44.9 Chronic obstructive pulmonary disease, unspecified; G40.909 Epilepsy, unspecified, not intractable, without status epilepticus; I73.9 Peripheral vascular disease, unspecified; W19.XXXA Unspecified fall, initial encounter; Y93.89 Activity, other specified; Y92.129 Unspecified place in nursing home as the place of occurrence of the external cause; Y99.9 Unspecified external cause status; D64.9 Anemia, unspecified; I11.0 Hypertensive heart disease with heart failure; I25.10 Atherosclerotic heart disease of native coronary artery without angina pectoris; S62.109A Fracture of unspecified carpal bone, unspecified wrist, initial encounter for closed fracture
CPT/HCPCS: 36415; 73110-TC-LT-FY; 73130-TC-LT-FY; 80048; 80053; 81003; 82272; 82728; 83540; 83550; 83735; 84100; 84466; 85025; 85027; 85610; 85651; 85730; 86140; 87040; 87086; 93005; 93010; 93970-TC; 99285-25